=== PATIENT | male | born 1995 | race African-American/Black ===

== ENCOUNTER 2017-03-14 23:45 | Emergency (ER) | payer MEDICAID ==
[~2017-03-14] VITALS: Ht 182.9 cm; Wt 73.0 kg
[2017-03-15 00:16] VITALS: BP 135/67
== END 2017-03-15 01:51 | disposition home or self-care (01) ==
LOC: ER 23:46
DX: F41.9 Anxiety disorder, unspecified (principal); F17.200 Nicotine dependence, unspecified, uncomplicated; F12.10 Cannabis abuse, uncomplicated
CPT/HCPCS: 93005; 99284; Z7610